=== PATIENT | male | born 1985 | race Caucasian/White ===

== ENCOUNTER → 2021-03-02 07:40 | Outpatient (CLI) | payer SELFPAY ==
--- NOTE | 2021-03-02 07:51 | CT_ITS ---
STUDY: CTA OF THE BRAIN REASON FOR EXAM: Male, 35 years old. R/O ANEURYSM RADIATION DOSAGE (If Supplied By Facility): CTDIvol = ( 25.59 ) mGy, DLP = ( 1220.24 ) mGycm TECHNIQUE: CT angiography was performed with a multi-detector CT scanner. Data acquisition was obtained from the skull base through the vertex following intravenous administration of IV 100mL Isovue-[id number]. MIP images were reconstructed from the axial data set. Post-processing of the angiographic images was performed, with multiplanar reformation and 3D reconstruction. Individualized dose optimization techniques were used for this CT. COMPARISON: None. FINDINGS: Normal bilateral petrous carotid arteries. Normal right cavernous carotid artery with a normal supraclinoid bifurcation. Normal left cavernous carotid artery with a normal supraclinoid bifurcation. Normal right A1 segments of the anterior cerebral artery. Normal left A1 segments of the anterior cerebral artery. Normal intact anterior communicating artery (ACOM). Normal bilateral A2 segments of the anterior cerebral arteries. Normal right M1 and M2 segments of the middle cerebral arteries, with a normal M1 bifurcation. Normal left M1 and M2 segments of the middle cerebral arteries, with a normal M1 bifurcation. Normal right posterior communicating artery (PCOM). Normal left posterior communicating artery (PCOM). Normal bilateral vertebral arteries. Normal basilar artery with a normal basilar bifurcation. The visualized bilateral superior cerebellar (SCA) arteries are normal. Normal bilateral P1, P2 and visualized P3 segments of the posterior cerebral arteries. There is no demonstrated aneurysm of the [place] of [place]. Pansinusitis. CT/CTA Head W/WO Contrast IMPRESSION: Normal ruby of [place] without a demonstrated aneurysm or hemodynamically significant stenosis. Pansinusitis. Electronically Signed: aZchariah Gamez MD at 9:08 EST , Service support ,
== END ==
PROVIDERS: PCP Physician Assistant; Referring Provider Physician Assistant; Visit Provider Physician Assistant
DX: I72.9 Aneurysm of unspecified site (principal)
CPT/HCPCS: 70496; Q9967